=== PATIENT | female | born 1965 | race African-American/Black ===

== ENCOUNTER 2016-08-20 20:02 | Emergency (ER) | payer MEDICARE, MEDICAID ==
[2016-08-20 20:48] VITALS: TEMP 98.5; BMI 48.2
[2016-08-20] MEDS ORDERED: HYDROCHLOROTHIAZIDE 25 MG TAB PO ONE (20:52)
--- NOTE | 2016-08-20 20:55 | EDPRACDOC ---
- General Information Chief Complaint: Headache Stated Complaint: HEADACHE Time Seen by Provider: 08/20/16 20:50 Information Source: Patient, [employer] Mode Of Arrival: Ambulance Home Medications: Home Medications Allopurinol [Zyloprim] 100 mg PO DAILY 08/21/14 Cetirizine HCl [Zyrtec] 10 mg PO DAILY 08/21/14 Darunavir Ethanolate [Prezista] 800 mg PO DAILY 08/21/14 Emtricitabine/Tenofovir [Truvada 200 mg-300 mg Tablet] 1 each PO DAILY 08/21/14 Ketoconazole 120 ml TP .[id number] 08/21/14 Medroxyprogesterone Acet [Depo-Provera] 150 mg IM .[id number] 08/21/14 Meloxicam [Mobic] 15 mg PO DAILY PRN 08/21/14 Olopatadine HCl [Patanase] 1 spray NS DAILY 08/21/14 Omeprazole 40 mg PO DAILY 08/21/14 Risperidone [Risperdal] 3 mg PO DAILY 08/21/14 Ritonavir [Norvir] 100 mg PO DAILY 08/21/14 Valproic Acid [Stavzor] 500 mg PO DAILY 08/21/14 Hydrochlorothiazide 25 mg PO DAILY #60 tablet 08/20/16 Allergies/Adverse Reactions: Allergies Allergy/AdvReac Type Severity Reaction Status Date / Time Penicillins Allergy Unknown/See Verified 05/18/16 11:54 Comments - History of Present Illness Onset: SLASH [employer]IMMER HPI: PT PRESENTS DUE TO HEADACHE AND HYPERTENSION. STATES SHE HAS BEEN OUT OF HER MEDICATIONS FOR A COUPLE OF DAYS. Location: Reports: Generalized Pain Quality: Reports: Moderate Modifying Factors: worse with: Medication, Exposure to light, Cold therapy, Immobilization, Movement, Rest Prior work up: Denies: NO, O, CT, LP, MRI, Neurologist Relevant History of: Reports: Hypertension Associated Signs and Symptoms: Reports: Frequent Headaches. Denies: Fever/ Chills, Nausea/Vomiting, Stiff Neck, Vision Changes ED Past Medical History - History Reviewed Yes Nurses notes reviewed and agree except as marked - Patient Medical History Cardiac History: Reports: Hypertension Respiratory History: Reports: Asthma Psychological History: Reports: Bipolar Disorder Surgical History: Denies: Hysterectomy EDM Review of Systems - Review of Systems ROS Negative Except as Marked: Yes All systems reviewed and were negative except as marked - Physical Exam Constitutional: Alert Oriented to: Time, Person, Place Last recorded Vital Signs: Last Vital Signs Temp 98.5 F 08/20/16 20:39 Pulse 95 08/20/16 20:39 Resp 20 08/20/16 20:39 BP 184/93 H 08/20/16 20:39 Pulse Ox 97 08/20/16 20:39 Oxygen Pulse Oxygen Saturation 97 O2 Device Room Air Oxygen Flow Rate Fraction of Inspired Oxygen ( FIO2) - HEENT Head: Normal ( normocephalic) Eye Exam: Normal (PERRL, EOMI, Sclera white) Oropharynx: Normal (Pharynx:Moist without exudate,Gums-no swelling) Nose: No Symptoms Reported (septum midline) Neck: Normal (FROM, trachea at midline) - Respiratory/Cardiovascular Respiratory: Normal - CTA (BBS clear to auscultation without adventitious sounds ) Cardiovascular: Normal (RRR without murmur, gallop or rub) - GI Auscultation: Normal (NABS) Palpation: Normal (Soft,No rebound or guarding, non distended) Tenderness: Non tender Obrien's Sign: Negative Rectal Exam: Deferred - Musculoskeletal Back: Normal (Non-Tender) Extremities: Normal (Normal tone, Pulses 2+ No cyanosis or edema, FROM) - Integumentary Skin: Normal, Warm, Dry Lymphatics: Normal (no adenopathy) - Neurologic Memory Impaired: Normal Motor Function: Normal (Normal tone, Pulses 2+ No cyanosis or edema, FROM) Cranial Nerve: Normal (CN II-X11 intact sensation, strength 5/5) Cerebellar: Normal Mood Description: Normal Perception: Normal - Differential Diagnosis Hypertensive Decision Time to Discharge: 20:57 - Departure Disposition: Home Condition: Stable Final Diagnosis: Headache Hypertension Qualifiers: Hypertension type: essential hypertension Qualified Code(s): I10 - Essential ( primary) hypertension Instructions: Chronic Hypertension (ED) Education/Counseling Given To: Patient Education/Counseling Given Regarding: Diagnosis, Treatment, Prognosis, Follow Up Referrals: Luís Silva MD [Staff Physician] - One Week Prescriptions: Hydrochlorothiazide 25 mg PO DAILY #60 tablet Additional Instructions: FOLLOW UP WITH PCP NEXT WEEK. TAKE MEDICATIONS PRESCRIBED. RETURN TO THE ED FOR WORSENING SYMPTOMS OR CONCERNS.
[2016-08-20 21:12] VITALS: BP 180/93; PULSE 96
== END 2016-08-20 21:11 | disposition home or self-care (01) ==
LOC: ED 20:02
DX: R51 Headache (principal); I10 Essential (primary) hypertension; J45.909 Unspecified asthma, uncomplicated; F31.9 Bipolar disorder, unspecified; Z79.899 Other long term (current) drug therapy
CPT/HCPCS: 99283; A9270; J3490